=== PATIENT | female | born 2000 | race African-American/Black ===

== ENCOUNTER 2021-06-24 07:52 | Emergency (ER) | payer BC, MEDICAID ==
[~2021-06-24] VITALS: Ht 170.2 cm; Wt 68.0 kg
[2021-06-24] MEDS ORDERED: ACETAMINOPHEN WITH CODEINE 300/30MG TABLET PO ONE (08:30)
[2021-06-24] MEDS ORDERED: T3 PO (09:06)
[2021-06-24] MEDS ORDERED: IBUP-2028 PO (09:06)
[2021-06-24] MEDS ORDERED: IBUPROFEN 400MG TABLET PO ONE (09:30)
[2021-06-24 09:35] VITALS: BP 125/67
== END 2021-06-24 09:36 | disposition home or self-care (01) ==
LOC: ER 07:52
DX: S62.622A Displaced fracture of middle phalanx of right middle finger, initial encounter for closed fracture (principal); W01.198A Fall on same level from slipping, tripping and stumbling with subsequent striking against other object, initial encounter; R00.0 Tachycardia, unspecified; Y93.89 Activity, other specified; Y92.89 Other specified places as the place of occurrence of the external cause; R03.0 Elevated blood-pressure reading, without diagnosis of hypertension
CPT/HCPCS: 29130; 73130; 81025; 99283

== ENCOUNTER 2022-12-26 02:38 | Emergency (ER) | payer MEDICAID ==
[~2022-12-26] VITALS: Ht 167.6 cm; Wt 64.0 kg
[~2022-12-26 02:38] MED LIST: IBUP-2028 PO; T3 PO
[2022-12-26 02:40] VITALS: O2SAT 96
[2022-12-26 05:40] VITALS: BP 115/75; PULSE 68; RESP 14; TEMP 98
== END 2022-12-26 05:49 | disposition home or self-care (01) ==
LOC: ER 02:38
DX: R41.82 Altered mental status, unspecified (principal); T51.0X1A Toxic effect of ethanol, accidental (unintentional), initial encounter; Y92.89 Other specified places as the place of occurrence of the external cause
CPT/HCPCS: 99283